=== PATIENT | male | born 1995 | race Caucasian/White ===

== ENCOUNTER 2018-02-03 13:39 | Emergency (ER) | payer OTHER ==
[2018-02-03] MEDS ORDERED: MORPHINE IV ONE (14:31)
[2018-02-03] MEDS ORDERED: ZOFRAN IV ONE (14:31)
[2018-02-03] MEDS ORDERED: ANCEF/NS 1 GM/50 ML 1 GM/50 ML BAG IV ONE (15:00)
--- NOTE | 2018-02-03 15:11 | XRay Report ---
LEFT ANKLE, 2 views: History: Open fracture, cut ankle with metal frame, injury. A complex soft tissue injury with overlying bandage is noted in the medial ankle. No acute osseous abnormality or joint pathology is identified. No radiopaque foreign body. IMPRESSION: Soft tissue injury. No osseous injury identified.
[2018-02-03] MEDS ORDERED: XYLOCAINE 1%/ EPI 1:100,000 INFILTRATI ONE (15:20)
[2018-02-03 15:40] LABS: BUN/Creatinine Ratio 19; Blood Urea Nitrogen 15 mg/dL (9-20); Calcium 9.6 mg/dL (8.4-10.2); Hemolysis Index 9
[2018-02-03 15:49] LABS: Basophils # (Auto) 0.1 K/mm3 (0.0-0.1); Basophils % (Auto) 0.5 % (0.0-1.8); Eosinophils % (Auto) 0.2 % (0.0-4.3); Hematocrit 47.1 % (35.5-45.6); Hemoglobin 15.3 gm/dl (11.8-15.2); Lymphocytes # (Auto) 1.3 K/mm3 (1.2-5.4); Lymphocytes % (Auto) 12.2 % (13.4-35.0); Mean Corpuscular HGB Conc 33 % (32-34); Mean Corpuscular Hemoglobin 29 pg (28-32); Mean Corpuscular Volume 88 fl (84-94); Monocytes # (Auto) 0.8 K/mm3 (0.0-0.8); Monocytes % (Auto) 7.3 % (0.0-7.3); Platelet Count 283 K/mm3 (140-440); Red Blood Count 5.36 M/mm3 (3.65-5.03)
[2018-02-03 15:59] LABS: INR 0.93 (0.87-1.13)
[2018-02-03 16:00] LABS: Partial Thromboplastin Time 21.1 Sec. (24.2-36.6)
[2018-02-03] MEDS ORDERED: XYLOCAINE 1%/ EPI 1:100,000 INFILTRATI NR (16:00)
[2018-02-03 16:07] VITALS: BP 108/67
--- NOTE | 2018-02-03 16:16 | Emergency Department Report ---
- General Chief Complaint: Laceration/Recheck/Suture Stated Complaint: LACERATION ON FOOT Time Seen by Provider: 02/03/18 14:20 Source: patient Mode of arrival: Ambulatory Limitations: No Limitations - History of Present Illness Initial Comments: Mr. Matias is a healthy 22-year-old male who injured his left medial ankle. Just 1 hour prior to arrival. Cut his left ankle onto a metal frame. He works as a metal molder. He has mild pain. Has bleeding. Tetanus status is up-to- date. His last tetanus was within the last 1-2 years. No other medical histories. No surgeries. He's been well otherwise. No numbness. His able to ambulate after the injury. -: Sudden Extremity Location: Left: Shoulder, Ankle Place: work Patient Tetanus UTD: Yes Context: accidental Associated Symptoms: pain. denies: loss of feeling/numbness, suspect foreign body present, unable to move injured part, weakness followed by dizziness, nausea/vomiting, fever - Related Data Previous Rx's Medication Instructions Recorded Last Taken Type Cephalexin [Keflex] 500 mg PO Q6HR 7 Days #28 capsule 02/03/18 Unknown Rx Allergies Allergy/AdvReac Type Severity Reaction Status Date / Time No Known Allergies Allergy Unverified 02/03/18 13:43 ED Review of Systems ROS: Stated complaint: LACERATION ON FOOT Other details as noted in HPI Constitutional: denies: fever, malaise Gastrointestinal: denies: abdominal pain, nausea, vomiting Neurological: denies: weakness, numbness, paresthesias ED Past Medical Hx - Past Medical History Previous Medical History?: No - Surgical History Past Surgical History?: No - Social History Smoking Status: Current Every Day Smoker Substance Use Type: Marijuana - Medications Home Medications: Home Medications Medication Instructions Recorded Confirmed Last Taken Type Cephalexin [Keflex] 500 mg PO Q6HR 7 Days #28 capsule 02/03/18 Unknown Rx ED Physical Exam - General Limitations: No Limitations General appearance: alert, in no apparent distress - Head Head exam: Present: atraumatic, normocephalic - Eye Eye exam: Absent: scleral icterus, conjunctival injection - Neck Neck exam: Present: normal inspection - Respiratory Respiratory exam: Absent: respiratory distress - Extremities Exam Extremities exam: Present: full ROM, other (intact DP PT pulses there is a 6 cm vertical gaping left ankle laceration over the medial malleolus. Deep to the fascia. Subcutaneous tissue exposed) - Neurological Exam Neurological exam: Present: alert, oriented X3 - Psychiatric Psychiatric exam: Present: normal affect, normal mood ED Course Vital Signs 02/03/18 02/03/18 02/03/18 13:42 14:45 16:07 Temperature 98.7 F Pulse Rate 109 H 61 71 Respiratory 16 17 Rate Blood Pressure 109/65 Blood Pressure 118/75 108/67 [Left] O2 Sat by Pulse 99 100 99 Oximetry - Laceration /Wound Repair Left Ankle Wound Location: lower extremity Wound Length (cm): 6 Wound's Depth, Shape: into muscle Wound Explored: no foreign body removed Irrigated w/ Saline (ccs): 800 Betadine Prep?: Yes Anesthesia: Lidocaine w/ Epi Volume Anesthetic (ccs): 5 Wound Debrided: moderate Wound Repaired With: sutures Suture Size/Type: nylon Number of Sutures: 8 Layer Closure?: Yes Deep Layer Suture Size/Type: 4:0 Number Deep Layer Sutures: 9 Sterile Dressing Applied?: Yes ED Medical Decision Making - Lab Data Result diagrams: 02/03/18 14:44 02/03/18 14:44 Laboratory Results - last 24 hr 02/03/18 02/03/18 02/03/18 14:44 14:44 14:44 WBC 11.0 RBC 5.36 H Hgb 15.3 H Hct 47.1 H MCV 88 MCH 29 MCHC 33 RDW 15.0 Plt Count 283 Lymph % (Auto) 12.2 L [place] % (Auto) 7.3 Eos % (Auto) 0.2 Baso % (Auto) 0.5 Lymph # 1.3 [place] # 0.8 Eos # 0.0 Baso # 0.1 Seg Neutrophils % 79.8 H Seg Neutrophils # 8.8 H PT 12.9 INR 0.93 APTT 21.1 L Sodium 138 Potassium 3.7 Chloride 97.0 L Carbon Dioxide 27 Anion Gap 18 BUN 15 Creatinine 0.8 Estimated GFR > 60 BUN/Creatinine Ratio 19 Glucose 81 Calcium 9.6 - Medical Decision Making Mr. Matias is a pleasant healthy 22-year-old male with complex left ankle laceration. I initially suspected potential open avulsion fracture. He received IV antibiotics in the ED. IV Ancef. Preop labs ordered due to suspicion for open fracture. Patient was negative for fracture. I was able to perform a 3 layer closure. Patient received prescription for Keflex. He understands to return in 2 weeks for suture removal and also understands to return earlier to the ER actually immediately for signs of infection. Critical care attestation.: If time is entered above; I have spent that time in minutes in the direct care of this critically ill patient, excluding procedure time. ED Disposition Clinical Impression: Laceration of left medial ankle Disposition: DC- TO HOME OR SELFCARE Is pt being admited?: No Does the pt Need Aspirin: No Condition: Stable Instructions: Laceration (ED) Additional Instructions: Please have sutures removed in 14 days. Please return to the ER immediately for signs of infection including redness purulence fever Prescriptions: Cephalexin [Keflex] 500 mg PO Q6HR 7 Days #28 capsule Referrals: [facility] [Outside] - as needed Forms: Work/School Release Form(ED) Time of Disposition: 16:17
== END 2018-02-03 16:50 | disposition home or self-care (01) ==
LOC: ED 13:39
DX: S91.012A Laceration without foreign body, left ankle, initial encounter (principal); F17.200 Nicotine dependence, unspecified, uncomplicated; F12.10 Cannabis abuse, uncomplicated; W26.8XXA Contact with other sharp object(s), not elsewhere classified, initial encounter; Y93.89 Activity, other specified; Y92.89 Other specified places as the place of occurrence of the external cause; Y99.8 Other external cause status
CPT/HCPCS: 12032; 36415; 73600; 80048; 85025; 85610; 85730; 96374; 96375; 99284; J0690; J2270; J2405

== ENCOUNTER 2018-02-17 13:24 | Emergency (ER) | payer SELFPAY ==
--- NOTE | 2018-02-17 19:27 | Emergency Department Report ---
Suture/Staple Removal - HPI Chief Complaint: Laceration/Recheck/Suture Stated Complaint: STITCHS REMOVED Time Seen by Provider: 02/17/18 19:20 When Sutures or Speed Placed: >14 Days Ago Wound Location: left medial ankle ED Review of Systems ROS: Stated complaint: STITCHS REMOVED Other details as noted in HPI Comment: All other systems reviewed and negative ED Past Medical Hx - Past Medical History Previous Medical History?: No - Surgical History Past Surgical History?: No - Social History Smoking Status: Current Every Day Smoker Substance Use Type: Marijuana - Medications Home Medications: Home Medications Medication Instructions Recorded Confirmed Last Taken Type Cephalexin [Keflex] 500 mg PO Q6HR 7 Days #28 capsule 02/03/18 Unknown Rx Suture Removal Exam - Exam General: Vital signs noted. No distress. Alert and acting appropriately. Wound: No Pathologic Erythema, No Tenderness, No Drainage, No Pus, No Wound Dehiscence Other Systems: All other systems reviewed and are unremarkable. ED Course Vital Signs 02/17/18 02/17/18 13:30 17:39 Temperature 98.5 F Pulse Rate 60 57 L Respiratory 16 16 Rate Blood Pressure 112/65 103/60 O2 Sat by Pulse 97 99 Oximetry ED Recheck MDM - Medical Decision Making Patient has been evaluated by this provider fast track. Sutures are working to be removed. There is no discharge nonerythematous. Critical care attestation.: If time is entered above; I have spent that time in minutes in the direct care of this critically ill patient, excluding procedure time. ED Disposition Clinical Impression: Encounter for removal of sutures Disposition: DC-01 TO HOME OR SELFCARE Is pt being admited?: No Does the pt Need Aspirin: No Condition: Stable Instructions: Suture Removal (ED) Referrals: PRIMARY CARE, [Primary Care Provider] - 3-5 Days Forms: Work/School Release Form(ED)
[2018-02-17 19:37] VITALS: BP 118/62
== END 2018-02-17 19:35 | disposition home or self-care (01) ==
LOC: ED 13:24
DX: S91.012D Laceration without foreign body, left ankle, subsequent encounter (principal); F17.200 Nicotine dependence, unspecified, uncomplicated; F12.10 Cannabis abuse, uncomplicated; X58.XXXD Exposure to other specified factors, subsequent encounter